=== PATIENT | female | born 1985 | race African-American/Black ===

== ENCOUNTER 2016-08-04 00:37 | Emergency (ER) | payer OTHER ==
[~2016-08-04] VITALS: Ht 167.6 cm; Wt 142.9 kg
[~2016-08-04 00:37] MED LIST: IBUPROFEN 600600 M1 PO; NORCO 5-325 TA1 EACH PO; VALIUM5 MG PO; VICODIN 5-5001 EACH PO
[2016-08-04] MEDS ORDERED: ZOLOFT50 MG PO (00:41)
[2016-08-04] MEDS ORDERED: VISTARIL 25 MG25 M1 PO (00:42)
[2016-08-04] MEDS ORDERED: PROBIOTIC1 EAC1 PO (00:43)
[2016-08-04] MEDS ORDERED: FOLIC ACID 40400 MCG PO (00:43)
[2016-08-04] MEDS ORDERED: CAPRYLIC ACID MC (00:44)
[2016-08-04 01:01] LABS: URINE BILIRUBIN NEGATIVE (Negative); URINE BLOOD NEGATIVE (Negative); URINE COLOR YELLOW; URINE GLUCOSE-RANDOM* NEGATIVE (Negative); URINE KETONES NEGATIVE (Negative); URINE NITRITE NEGATIVE (Negative); URINE PROTEIN (DIPSTICK) NEGATIVE (Negative); URINE SPECIFIC GRAVITY 1.025 (1.003-1.035); URINE UROBILINOGEN 0.2 E.U./dl (0.2-1.0)
[2016-08-04] MEDS ORDERED: AZITHROMYCIN250 MG PO (01:57)
[2016-08-04] MEDS ORDERED: DIFLUCAN150 M1 PO (01:57)
[2016-08-04 02:04] VITALS: BP 135/90
== END 2016-08-04 02:10 | disposition home or self-care (01) ==
LOC: ER 00:37
PROVIDERS: Emergency Medicine
DX: N76.0 Acute vaginitis (principal); F41.9 Anxiety disorder, unspecified; F32.9 Major depressive disorder, single episode, unspecified

== ENCOUNTER 2017-05-19 17:15 | Emergency (ER) | payer OTHER ==
[~2017-05-19] VITALS: Ht 167.6 cm; Wt 147.4 kg
[~2017-05-19 17:15] MED LIST changes: +AZITHROMYCIN250 MG PO; +CAPRYLIC ACID MC; +DIFLUCAN150 M1 PO; +FOLIC ACID 40400 MCG PO; +PROBIOTIC1 EAC1 PO; +VISTARIL 25 MG25 M1 PO; +ZOLOFT50 MG PO
[2017-05-19 18:11] LABS: URINE BILIRUBIN NEGATIVE (Negative); URINE BLOOD NEGATIVE (Negative); URINE CLARITY CLEAR; URINE COLOR YELLOW; URINE GLUCOSE-RANDOM* NEGATIVE (Negative); URINE KETONES 1+ (Negative); URINE LEUKOCYTES-REFLEX NEGATIVE (Negative); URINE NITRITE-REFLEX NEGATIVE (Negative); URINE PROTEIN (DIPSTICK) NEGATIVE (Negative); URINE UROBILINOGEN 0.2 E.U./dl (0.2-1.0)
[2017-05-19] MEDS ORDERED: NAPROSYN500 MG PO (19:52)
== END 2017-05-19 20:00 | disposition home or self-care (01) ==
LOC: ER 17:15
PROVIDERS: Physician Assistant
DX: N89.8 Other specified noninflammatory disorders of vagina (principal); Z91.040 Latex allergy status

== ENCOUNTER 2017-08-15 15:19 | Emergency (ER) | payer OTHER ==
[~2017-08-15] VITALS: Ht 167.6 cm; Wt 156.5 kg
[~2017-08-15 15:19] MED LIST changes: +NAPROSYN500 MG PO
[2017-08-15 15:21] VITALS: BP 119/81
[2017-08-15] MEDS ORDERED: PREDNISONE 10 M10 MG PO (15:29)
[2017-08-15] MEDS ORDERED: IBUPROFEN 600600 M1 PO (15:29)
== END 2017-08-15 16:05 | disposition home or self-care (01) ==
LOC: ER 15:19
DX: M72.2 Plantar fascial fibromatosis (principal); F32.9 Major depressive disorder, single episode, unspecified; F41.9 Anxiety disorder, unspecified

== ENCOUNTER 2017-09-16 15:37 | Emergency (ER) | payer OTHER ==
[~2017-09-16] VITALS: Ht 167.6 cm; Wt 152.0 kg
[~2017-09-16 15:37] MED LIST changes: +PREDNISONE 10 M10 MG PO
[2017-09-16] MEDS ORDERED: SPRINTEC1 EACH PO (15:45)
[2017-09-16] MEDS ORDERED: HYDROCODONE-AP1 EAC6 PO (16:28)
[2017-09-16 17:16] VITALS: BP 145/87
== END 2017-09-16 17:17 | disposition home or self-care (01) ==
LOC: ER 15:37
DX: M72.2 Plantar fascial fibromatosis (principal); F32.9 Major depressive disorder, single episode, unspecified; F41.9 Anxiety disorder, unspecified; Z91.040 Latex allergy status

== ENCOUNTER 2018-06-23 16:38 | Emergency (ER) | payer OTHER ==
[~2018-06-23] VITALS: Ht 175.3 cm; Wt 136.1 kg
[~2018-06-23 16:38] MED LIST changes: +HYDROCODONE-AP1 EAC6 PO; +SPRINTEC1 EACH PO
[2018-06-23 18:02] VITALS: BP 119/66
== END 2018-06-23 18:06 | disposition home or self-care (01) ==
LOC: ER 16:38
DX: J10.1 Influenza due to other identified influenza virus with other respiratory manifestations (principal); Z91.040 Latex allergy status

== ENCOUNTER 2018-06-26 18:18 | Emergency (ER) | payer OTHER ==
[~2018-06-26] VITALS: Ht 167.6 cm; Wt 138.3 kg
[2018-06-26] MEDS ORDERED: IBUPROFEN 600600 M1 PO (19:51)
[2018-06-26] MEDS ORDERED: TESSALON PERLE100 MG PO (19:51)
[2018-06-26 20:24] VITALS: BP 142/93
== END 2018-06-26 20:24 | disposition home or self-care (01) ==
LOC: ER 18:18
DX: J10.1 Influenza due to other identified influenza virus with other respiratory manifestations (principal); Z91.040 Latex allergy status

== ENCOUNTER 2019-01-08 20:40 | Emergency (ER) | payer OTHER ==
[~2019-01-08] VITALS: Ht 167.6 cm; Wt 97.5 kg
[~2019-01-08 20:40] MED LIST changes: +TESSALON PERLE100 MG PO
[2019-01-08] MEDS ORDERED: NOHOMEMEDICATIONS (20:53)
[2019-01-08 21:24] VITALS: BP 169/105
[2019-01-08] MEDS ORDERED: SSD CREAM 1% 5050 GM TOP (21:37)
== END 2019-01-08 21:47 | disposition home or self-care (01) ==
LOC: ER 20:40
DX: T20.05XA Burn of unspecified degree of scalp [any part], initial encounter (principal); F41.9 Anxiety disorder, unspecified; F32.9 Major depressive disorder, single episode, unspecified; Z91.040 Latex allergy status; X08.8XXA Exposure to other specified smoke, fire and flames, initial encounter; Y93.89 Activity, other specified; Y92.89 Other specified places as the place of occurrence of the external cause; Y99.0 Civilian activity done for income or pay

== ENCOUNTER 2019-09-17 16:54 | Emergency (ER) | payer OTHER ==
[~2019-09-17] VITALS: Ht 167.6 cm; Wt 147.4 kg
[~2019-09-17 16:54] MED LIST changes: +NOHOMEMEDICATIONS; +SSD CREAM 1% 5050 GM TOP
[2019-09-17 17:55] LABS: URINE BILIRUBIN NEGATIVE (Negative); URINE BLOOD NEGATIVE (Negative); URINE CLARITY CLEAR; URINE COLOR YELLOW; URINE GLUCOSE-RANDOM* NEGATIVE (Negative); URINE KETONES NEGATIVE (Negative); URINE LEUKOCYTES-REFLEX NEGATIVE (Negative); URINE NITRITE-REFLEX NEGATIVE (Negative); URINE PROTEIN (DIPSTICK) NEGATIVE (Negative); URINE UROBILINOGEN 0.2 E.U./dl (0.2-1.0)
[2019-09-17 18:04] LABS: AMP/METHAMP Negative (Negative); BARBITURATES Negative (Negative); BENZODIAZEPINES Negative (Negative); COCAINE Negative (Negative); METHADONE Negative (Negative); OPIATES Negative (Negative); PCP Negative (Negative)
[2019-09-17 18:22] LABS: BASOPHILS 0.7 % (0.0-2.0); EOSINOPHILS 1.9 % (0.0-3.0); HEMATOCRIT 38.7 % (37.0-47.0); HEMOGLOBIN 12.5 gm/dL (12.0-15.0); LYMPHOCYTES 29.9 % (24.0-44.0); MCH 24.3 pg (26.0-34.0); MCHC 32.3 g/dL (28.0-37.0); MCV 75.1 fL (80.0-100.0); MONOCYTES 7.7 % (1.0-8.0); PLATELET COUNT 292 thou/uL (150-400); POLYS 59.8 % (36.0-66.0); RBC 5.15 mil/uL (4.20-5.00); RDW 15.9 % (10.5-14.5); WBC 6.7 thou/uL (4.0-11.0)
[2019-09-17 18:33] LABS: ANION GAP 3 mmol/L (7-16); BUN 9 mg/dL (7-18); CALCIUM 8.6 mg/dL (8.5-10.1); CHLORIDE 103 mmol/L (98-107); CO2 32 mmol/L (21-32); GLUCOSE 91 mg/dL (74-106); POTASSIUM 4.2 mmol/L (3.5-5.1); SODIUM 138 mmol/L (136-145)
[2019-09-17 18:44] LABS: SALICYLATE < 2.8 mg/dL (2.8-20.0); SGOT 18 U/L (15-37); SGPT 25 U/L (30-65); TOTAL BILIRUBIN 0.3 mg/dL (0.2-1.0); TOTAL PROTEIN 6.3 g/dL (6.4-8.2); TROPONIN-I <0.06 ng/mL (<0.06)
[2019-09-17] MEDS ORDERED: MECLIZINE HCL25 MG PO (20:42)
[2019-09-17] MEDS ORDERED: REGLAN 5 MG TAB5 MG PO (20:42)
[2019-09-17 20:51] VITALS: BP 148/76
--- NOTE | 2019-09-18 11:51 | EKG ---
[facility] [place] [address] ELECTROCARDIOGRAM REPORT Name: [place] LERMA Radha Room #: DEP [facility]#: [id number] Admission: 09/17/19 Attend Phys: Discharge: 09/17/19 Date of : 89 Report #: [id number] THIS REPORT FOR: cc: GIORGI - Damaris family physician/PCP GIORGI - No family physician/PCP Niles Xavier MD ~ THIS REPORT FOR: //name// [facility] ED Test Date: 2019-09-17 Test Time: 18:01:27 Pat Name: [place] LERMA Department: Room: Gender: F Bottle Sorter: [facility] : 1985 Requested By: Arsenio Kwong Order Number: [id number] MD: Niles Xavier Measurements Intervals Check Rate: 58 P: 73 OK: 140 QRS: 61 QRSD: 85 T: 37 QT: 399 QTc: 392 Interpretive Statements Sinus arrhythmia No previous ECG available for comparison Electronically Signed On 09-18-2019 11:50:43 CDT by Niles Xavier [email or web address] <ELECTRONICALLY SIGNED> By: Niles Xavier MD 09/18/19 1150 00 00 Niles Xavier MD /ORLIN
== END 2019-09-17 20:51 | disposition home or self-care (01) ==
LOC: ER 16:54
PROVIDERS: Emergency Medicine
DX: R42 Dizziness and giddiness (principal); R51 Headache; H53.8 Other visual disturbances; F32.9 Major depressive disorder, single episode, unspecified; R53.1 Weakness; F41.9 Anxiety disorder, unspecified; Z91.040 Latex allergy status

== ENCOUNTER 2020-02-08 01:42 | Emergency (ER) | payer OTHER ==
[~2020-02-08] VITALS: Ht 167.6 cm; Wt 142.9 kg
[~2020-02-08 01:42] MED LIST changes: +MECLIZINE HCL25 MG PO; +REGLAN 5 MG TAB5 MG PO
[2020-02-08 02:57] LABS: URINE BILIRUBIN NEGATIVE (Negative); URINE BLOOD NEGATIVE (Negative); URINE CLARITY CLEAR; URINE COLOR YELLOW; URINE GLUCOSE-RANDOM* NEGATIVE (Negative); URINE KETONES NEGATIVE (Negative); URINE LEUKOCYTES-REFLEX NEGATIVE (Negative); URINE NITRITE-REFLEX NEGATIVE (Negative); URINE PROTEIN (DIPSTICK) NEGATIVE (Negative); URINE SPECIFIC GRAVITY 1.025 (1.005-1.035); URINE UROBILINOGEN 0.2 E.U./dl (0.2-1.0)
[2020-02-08 04:49] VITALS: BP 143/96
== END 2020-02-08 04:50 | disposition home or self-care (01) ==
LOC: ER 01:42
PROVIDERS: Emergency Medicine
DX: N72 Inflammatory disease of cervix uteri (principal); F32.9 Major depressive disorder, single episode, unspecified; F41.9 Anxiety disorder, unspecified; Z91.040 Latex allergy status; Z88.8 Allergy status to other drugs, medicaments and biological substances; Z79.899 Other long term (current) drug therapy

== ENCOUNTER 2020-11-12 16:16 | Emergency (ER) | payer BC ==
[~2020-11-12] VITALS: Ht 167.6 cm; Wt 142.9 kg
[2020-11-12 16:17] VITALS: BP 155/101
[2020-11-12] MEDS ORDERED: PREDNISONE 20 M20 MG PO (17:31)
[2020-11-12] MEDS ORDERED: PROAIR HFA8.5 GM INH (17:31)
== END 2020-11-12 17:33 | disposition home or self-care (01) ==
LOC: ER 16:16
DX: J18.9 Pneumonia, unspecified organism (principal); Z20.822 Contact with and (suspected) exposure to COVID-19; R07.89 Other chest pain; F41.9 Anxiety disorder, unspecified; F32.9 Major depressive disorder, single episode, unspecified; Z98.890 Other specified postprocedural states; Z79.899 Other long term (current) drug therapy; Z88.5 Allergy status to narcotic agent; Z88.8 Allergy status to other drugs, medicaments and biological substances; Z88.6 Allergy status to analgesic agent; Z91.040 Latex allergy status